=== PATIENT | male | born 2000 | race African-American/Black ===

== ENCOUNTER 2023-03-05 19:45 | Emergency (ER) | payer SELFPAY ==
[~2023-03-05] VITALS: Ht 175.3 cm; Wt 68.0 kg
[2023-03-05 21:42] VITALS: BP_SYST 163; PULSE 86; RESP 18; TEMP 98.3; O2SAT 99
[2023-03-05 23:32] VITALS: BP_SYST 163; PULSE 86; RESP 18; TEMP 98.3; O2SAT 99
== END 2023-03-05 23:30 | disposition home or self-care (01) ==
LOC: SED 19:45
DX: S09.90XA Unspecified injury of head, initial encounter (principal); R03.0 Elevated blood-pressure reading, without diagnosis of hypertension; W22.8XXA Striking against or struck by other objects, initial encounter; Y93.89 Activity, other specified; Y92.89 Other specified places as the place of occurrence of the external cause; Y99.8 Other external cause status
CPT/HCPCS: 70450-TC; 76376; 99284